=== PATIENT | female | born 1955 | race Caucasian/White ===

== ENCOUNTER 2018-08-04 20:08 | Emergency (ER) | payer OTHER ==
[~2018-08-04] VITALS: Ht 157.5 cm; Wt 58.1 kg
== END 2018-08-04 23:49 | disposition home or self-care (01) ==
LOC: ER 20:08
DX: S13.4XXA Sprain of ligaments of cervical spine, initial encounter (principal); V49.9XXA Car occupant (driver) (passenger) injured in unspecified traffic accident, initial encounter; Y93.89 Activity, other specified; Y92.488 Other paved roadways as the place of occurrence of the external cause; Y99.8 Other external cause status